=== PATIENT | female | born 1985 | race Caucasian/White ===

== ENCOUNTER 2017-11-23 13:59 | Emergency (ER) | payer SELFPAY ==
[~2017-11-23] VITALS: Ht 162.6 cm; Wt 54.3 kg
[2017-11-23 14:09] VITALS: TEMP 36.8; Ht 162.6 cm; Wt 54.3 kg
[2017-11-23] MEDS ORDERED: ELMCR EXT (14:28)
[2017-11-23] MEDS ORDERED: VALA1TAB2 PO (14:28)
--- NOTE | 2017-11-23 14:29 | EMERGENCY ROOM VISIT NOTE ---
ED Visit Note First contact with patient: 14:16 CHIEF COMPLAINT: Rash HISTORY OF PRESENT ILLNESS: This 32-year-old female patient presents to the emergency department, ambulatory, complaining of a rash over her entire body which started approximately 5 months ago. The patient was in snf at that time, and states the entire floor had significant itchiness and similar rashes. She was treated once for scabies, and states her symptoms improved, however she returned to the same so, which was not treated, nor were the other cell mates. The patient states the rash returned soon after the initial treatment, and she was never treated again. This was approximately 2 months ago. She states she has been experiencing burning and itchiness over her entire body, through her hair, and worse in the flexor surfaces of the joints. The patient was released from snf today, and states on her way home, she could not handle the itchiness any longer, so came immediately to the emergency department for evaluation. The patient also reports a herpes outbreak with lesions on her labia. This is consistent with previous outbreaks she has experienced. The patient denies fever, chills, nausea, or loss of appetite. They deny any URI symptoms. The patient states the rash is extremely itchy and rates the discomfort as 10/10. No change in food, soap, detergents, or other environmental factors. No new medications. No weakness or numbness. REVIEW OF SYSTEMS: A 6 system review of systems was completed with positives and pertinent negatives listed in the HPI. ALLERGIES: Imitrex MEDICATIONS: Benadryl, Topamax, BuSpar PMH: Anxiety, mood swings SOCIAL HISTORY: The patient lives in [place] with family. She denies drug, alcohol use. She admits to smoking one half pack of cigarettes per day. PHYSICAL EXAM: Vital Signs: Reviewed Nurse's notes, vital signs stable. GENERAL : This is a 32-year-old white female, in no acute distress, well-developed, well -nourished. SKIN: Erythematous papules with burrows noted over the entire body , worse in the flexor surfaces of the joints as well as in the webspaces between the fingers and axilla. There are ulcerations without drainage of the labia bilaterally. These are not tender to palpation. The patient states they are consistent with previous herpes outbreak she has experienced. Capillary refill less than 2 seconds. EMERGENCY DEPARTMENT COURSE: The patient was seen and evaluated as above. 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 The rash is consistent with scabies, with possible herpes outbreak on the labia. The patient will be treated with permethrin cream and provided with a refill. She was given a prescription for Valtrex to be taken for the herpes outbreak. The patient was given paper prescriptions at her request, as she is not from the area. Discharge instructions reviewed, the patient was discharged home in good condition. I attest that I have personally reviewed the patient's current medication list. Patient was found to have normal blood pressure on screening and does not require follow-up. Differential diagnosis includes fungal, scabies, herpes, dermatitis, eczema, cellulitis, abscess, viral, musculoskeletal etiology, hepatic abnormality, malignancy, and others DIAGNOSIS: Scabies, herpes Current/Historical Medications Scheduled Permethrin 5% (Elimite 5%), 0 EXT UD Valacyclovir Hcl (Valtrex), 1,000 MG PO QD Vital Signs Date Time Temp Pulse Resp B/P (MAP) Pulse Ox O2 Delivery O2 Flow Rate FiO2 11/23/17 14:35 102 20 107/73 100 11/23/17 14:09 36.8 102 20 107/73 100 Room Air Departure Information Impression Primary Impression: Scabies Additional Impression: Herpes genitalis in women Dispostion Home / Self-Care Condition GOOD Prescriptions Valacyclovir Hcl (VALTREX) 1 Gm Tab 1000 MG PO QD for 5 Days, #5 TAB Prov: Kelley Redding PA-C 11/23/17 Permethrin 5% (Elimite 5%) 180 Appln/60 Gm Cr 0 EXT UD, #1 TUBE 1 Refill APPLY HEAD TO FOOT - LEAVE ON 8-14 HR - WASH OFF Prov: Kelley Redding PA-C 11/23/17 Referrals No Doctor, Assigned (PCP) Patient Instructions ED Scabies, Herpes Tx Med, [facility] Additional Instructions You were seen in the emergency department today for a rash. This is presumed to be scabies. You were given a prescription for permethrin to be used once, applied from head to toe, and washed off 8-14 hours later. You may repeat this dosing in 1-2 weeks if you continue to experience symptoms. Please contact an marine welder regarding ensuring there are no mites present within the vehicle you are riding in. You were also seen for a herpes outbreak. You were given a prescription for Valtrex to be taken as directed. It is imperative that you follow-up with a primary care provider for ongoing management of your problems. Return to the emergency department for any significantly worsening symptoms or other concerns. Problem Qualifiers
[2017-11-23 14:35] VITALS: BP 107/73; PULSE 102; O2SAT 100
== END 2017-11-23 14:36 | disposition home or self-care (01) ==
LOC: C.EDB 14:01 → C.EDD 14:36
DX: B86 Scabies (principal); A60.09 Herpesviral infection of other urogenital tract; F17.210 Nicotine dependence, cigarettes, uncomplicated; F41.9 Anxiety disorder, unspecified